=== PATIENT | female | born 1995 | race Caucasian/White ===

== ENCOUNTER 2016-11-03 17:07 | Emergency (ER) | payer BC ==
[~2016-11-03] VITALS: Ht 165.1 cm; Wt 84.5 kg
[2016-11-03 17:14] VITALS: TEMP 36.9; Ht 165.1 cm; Wt 84.5 kg
[2016-11-03] MEDS ORDERED: ONDANSETRON INJ 2 MG/ML 2 ML VIAL IV STA (17:25)
[2016-11-03] MEDS ORDERED: KETOROLAC TROMETHAMINE 30 MG/ML VIAL IV STA (17:25)
[2016-11-03] MEDS ORDERED: SODIUM CHLORIDE 0.9% 1000ML 1,000 ML IV STA (17:25)
[2016-11-03] MEDS ORDERED: NORE1CHW2 PO (17:42)
[2016-11-03 17:50] LABS: BASO % 0.2 %; BASO ABS # 0.03 K/uL (0-0.2); COMPLETE YES; HEMATOCRIT 37.4 % (37-47); IG% 0.3 %; LYMPH % 9.9 %; LYMPH ABS # 1.59 K/uL (1.2-3.4); MEAN CELL VOLUME 83.9 fL (80-100); MEAN CORPUSCULAR HEMOGLOBIN 31.2 pg (25-34); MEAN CORPUSCULAR HGB CONC 37.2 g/dl (32-36); MEAN PLATELET VOLUME 10.3 fL (7.4-10.4); MONO % 4.6 %; PLATELET COUNT 232 K/uL (130-400); RED BLOOD COUNT 4.46 M/uL (4.2-5.4); WHITE BLOOD COUNT 16.06 K/uL (4.8-10.8)
[2016-11-03 18:07] LABS: ALT/SGPT 17 U/L (12-78); BLOOD UREA NITROGEN 10 mg/dl (7-18); BUN/CREATININE RATIO 12.3 (10-20); CARBON DIOXIDE 20 mmol/L (21-32); CHLORIDE 105 mmol/L (98-107); CREATININE 0.81 mg/dl (0.60-1.20); GLUCOSE 87 mg/dl (70-99); POTASSIUM 3.5 mmol/L (3.5-5.1); SODIUM 139 mmol/L (136-145)
[2016-11-03 18:10] LABS: ALKALINE PHOSPHATASE 60 U/L (45-117); AST/SGOT 18 U/L (15-37)
[2016-11-03] MEDS ORDERED: OPTIRAY 320 IV PRN (18:15)
[2016-11-03 18:24] LABS: URINE APPEARANCE CLEAR (CLEAR); URINE BILIRUBIN NEG (NEG); URINE COLOR YELLOW; URINE EPITHELIAL CELL AUTO 20-30 /lpf (0-5); URINE NITRITE NEG (NEG); URINE SPECIFIC GRAVITY 1.019 (1.000-1.030); UROBILINOGEN NEG (NEG); ZZUR CULT IF INDIC CLEAN CATCH YES
[2016-11-03 18:36] LABS: MANUAL MICROSCOPIC REQUIRED? NO; REVIEW REQ? YES
--- NOTE | 2016-11-03 21:02 | DIAGNOSTIC IMAGING REPORT ---
CT SCAN OF THE ABDOMEN AND PELVIS WITH IV CONTRAST CLINICAL HISTORY: Lower abdominal pain. COMPARISON STUDY: No priors. TECHNIQUE: Following the IV administration of 93 cc of Optiray 320, CT scan of the abdomen and pelvis is performed from the lung bases to the proximal femora. Images are reviewed in the axial, sagittal, and coronal planes. IV contrast was administered without complication. Automated dose control exposure was utilized. CT DOSE: 852.11 mGycm FINDINGS: Lung bases: The heart is normal in size and without pericardial effusion. The lung bases are clear. Liver: The contrast-enhanced liver is enlarged, measuring 19 cm in length. The liver demonstrates diminished attenuation consistent with mild hepatic steatosis. There is no intrahepatic biliary ductal dilatation. The hepatic veins and portal veins are patent. Gallbladder: Unremarkable. Spleen: Normal in size and attenuation. Pancreas: Unremarkable. Adrenal glands: Unremarkable. Kidneys: The contrast enhanced kidneys are normal in size and without hydronephrosis. The kidneys enhance symmetrically. Abdominal vasculature: The abdominal aorta is normal in course and caliber. Bowel: The small bowel and colon are normal in course and caliber. There is moderate colonic fecal retention. The appendix is well-visualized and normal. Peritoneum: There is no intraperitoneal free air or abdominal ascites. Lymphadenopathy: None. Pelvic viscera: The bladder, uterus, and adnexa are normal as visualized. There are bilateral ovarian follicles. There is trace free fluid in the cul-de-sac. Skeletal structures: No lytic or blastic lesions are seen. A small posterior disc osteophyte complex is present at L5-S1. IMPRESSION: 1. There are no acute infectious or inflammatory findings in the abdomen or pelvis. 2. Hepatomegaly and hepatic steatosis. 3. Moderate constipation. 4. There is trace and likely physiologic free fluid in the cul-de-sac. Electronically signed by: Raj Burns M.D. 11/03/2016 9:00 PM Dictated Date/Time: 11/03/2016 8:56 PM
[2016-11-03 21:29] VITALS: BP 110/67; PULSE 70; O2SAT 99
--- NOTE | 2016-11-03 21:36 | EMERGENCY ROOM VISIT NOTE ---
History Report prepared by Forrest: Louis Blue Under the Supervision of: Dr. Сергей Ann D.O. First contact with patient: 17:17 Chief Complaint: ABDOMINAL PAIN Stated Complaint: ABDOMINAL PAIN:[facility] SENT PT TO ER Nursing Triage Summary: Pt c/o abdominal pain since this morning with nausea and no appetite History of Present Illness The patient is a 21 year old female who presents to the Emergency Room with complaints of worsening left sided abdominal pain beginning several hours prior to arrival. She currently rates her discomfort as an 8/10 in severity. The patient states she woke up this morning with an uncomfortable feeling in her lower abdomen. She notes she went about her day, and the pain worsened around 1 PM, when she was sitting in class. The patient states she left class early for a bowel movement but could not. She notes she walked to [facility] after class to be evaluated. The patient states her discomfort worsens with movement and walking. She denies anything making her discomfort better. The patient notes she has not had her period for 6-7 weeks but denies being . She states she is recently off of her control and skipped her last period. The patient denies a history of abdominal surgeries. She denies any medical problems. Pt denies headache, change in vision, fevers, chest pain, shortness of breath, vomiting, diarrhea, pain with urination, and melena. Source of History: patient Onset: several hours [employer] Position: abdomen (left sided) Symptom Intensity: 8/10 Timing: worsening Associated Symptoms: + abdominal pain Review of Systems See HPI for pertinent positives & negatives. A total of 10 systems reviewed and were otherwise negative. Past Medical & Surgical Medical Problems: (1) No pertinent past medical history Family History Patient reports no known family medical history. Social History Smoking Status: Never Smoker Marital Status: single Occupation Status: [employer] student Current/Historical Medications Scheduled Norethindrone & Ethinyl Estrad ([place] Fe), 1 TAB PO DAILY Allergies Coded Allergies: No Known Allergies (Unverified , 11/03/16) Physical Exam Vital Signs Date Time Temp Pulse Resp B/P Pulse Ox O2 Delivery O2 Flow Rate FiO2 11/03/16 21:29 70 16 110/67 99 Room Air 11/03/16 19:09 76 16 114/79 99 Room Air 11/03/16 17:14 36.9 82 20 130/84 100 Room Air Physical Exam GENERAL: sitting up in bed, uncomfortable appearing holding abdomen, non-toxic EYE EXAM: normal conjunctiva OROPHARYNX: no exudate, no erythema, lips, buccal mucosa, and tongue normal and mucous membranes are moist NECK: supple, no nuchal rigidity, no adenopathy, non-tender LUNGS: Clear to auscultation. Normal chest wall mechanics HEART: no murmurs, S1 normal and S2 normal ABDOMEN: Tender to palpation in the right lower and left lower quadrants. Abdomen soft, normo-active bowel sounds, no masses, no rebound or guarding. BACK: Back is symmetrical on inspection and there is no deformity, no midline tenderness, no CVA tenderness. SKIN: no rashes and no bruising UPPER EXTREMITIES: upper extremities are grossly normal. LOWER EXTREMITIES: No pitting edema. NEURO EXAM: Normal sensorium, cranial nerves II-XII grossly intact, normal speech, no gross weakness of arms, no gross weakness of legs. Medical Decision & Procedures ER Provider Diagnostic Interpretation: CT:Per my review, radiologist interpretation. CT SCAN OF THE ABDOMEN AND PELVIS WITH IV CONTRAST CLINICAL HISTORY: Lower abdominal pain. COMPARISON STUDY: No priors. TECHNIQUE: Following the IV administration of 93 cc of Optiray 320, CT scan of the abdomen and pelvis is performed from the lung bases to the proximal femora. Images are reviewed in the axial, sagittal, and coronal planes. IV contrast was administered without complication. Automated dose control exposure was utilized. CT DOSE: 852.11 mGycm FINDINGS: Lung bases: The heart is normal in size and without pericardial effusion. The lung bases are clear. Liver: The contrast-enhanced liver is enlarged, measuring 19 cm in length. The liver demonstrates diminished attenuation consistent with mild hepatic steatosis. There is no intrahepatic biliary ductal dilatation. The hepatic veins and portal veins are patent. Gallbladder: Unremarkable. Spleen: Normal in size and attenuation. Pancreas: Unremarkable. Adrenal glands: Unremarkable. Kidneys: The contrast enhanced kidneys are normal in size and without hydronephrosis. The kidneys enhance symmetrically. Abdominal vasculature: The abdominal aorta is normal in course and caliber. Bowel: The small bowel and colon are normal in course and caliber. There is moderate colonic fecal retention. The appendix is well-visualized and normal. Peritoneum: There is no intraperitoneal free air or abdominal ascites. Lymphadenopathy: None. Pelvic viscera: The bladder, uterus, and adnexa are normal as visualized. There are bilateral ovarian follicles. There is trace free fluid in the cul-de-sac. Skeletal structures: No lytic or blastic lesions are seen. A small posterior disc osteophyte complex is present at L5-S1. IMPRESSION: 1. There are no acute infectious or inflammatory findings in the abdomen or pelvis. 2. Hepatomegaly and hepatic steatosis. 3. Moderate constipation. 4. There is trace and likely physiologic free fluid in the cul-de-sac. Electronically signed by: Raj Burns M.D. 11/03/2016 9:00 PM Laboratory Results 11/03/16 17:35 Red Blood Count 4.46, Mean Corpuscular Volume 83.9, Mean Corpuscular Hemoglobin 31.2, Mean Corpuscular Hemoglobin Concent 37.2, Mean Platelet Volume 10.3, Neutrophils (%) (Auto) 84.0, Lymphocytes (%) (Auto) 9.9, Monocytes (%) (Auto) 4.6, Eosinophils (%) (Auto) 1.0, Basophils (%) (Auto) 0.2, Neutrophils # (Auto) 13.49, Lymphocytes # (Auto) 1.59, Monocytes # (Auto) 0.74, Eosinophils # (Auto) 0.16, Basophils # (Auto) 0.03 11/03/16 17:35 Test 11/03/16 17:25 11/03/16 17:35 Urine Test NEG (NEG) White Blood Count 16.06 K/uL (4.8-10.8) Red Blood Count 4.46 M/uL (4.2-5.4) Hemoglobin 13.9 g/dL (12.0-16.0) Hematocrit 37.4 % (37-47) Mean Corpuscular Volume 83.9 fL (80-100) Mean Corpuscular Hemoglobin 31.2 pg (25-34) Mean Corpuscular Hemoglobin Concent 37.2 g/dl (32-36) Platelet Count 232 K/uL (130-400) Mean Platelet Volume 10.3 fL (7.4-10.4) Neutrophils (%) (Auto) 84.0 % Lymphocytes (%) (Auto) 9.9 % Monocytes (%) (Auto) 4.6 % Eosinophils (%) (Auto) 1.0 % Basophils (%) (Auto) 0.2 % Neutrophils # (Auto) 13.49 K/uL (1.4-6.5) Lymphocytes # (Auto) 1.59 K/uL (1.2-3.4) Monocytes # (Auto) 0.74 K/uL (0.11-0.59) Eosinophils # (Auto) 0.16 K/uL (0-0.5) Basophils # (Auto) 0.03 K/uL (0-0.2) RDW Standard Deviation 38.7 fL (36.4-46.3) RDW Coefficient of Variation 12.8 % (11.5-14.5) Immature Granulocyte % (Auto) 0.3 % Immature Granulocyte # (Auto) 0.05 K/uL (0.00-0.02) Urine Color YELLOW Urine Appearance CLEAR (CLEAR) Urine pH 5.0 (4.5-7.5) Urine Specific [place] 1.019 (1.000-1.030) Urine Protein NEG (NEG) Urine Glucose (UA) NEG (NEG) Urine Ketones NEG (NEG) Urine Occult Blood NEG (NEG) Urine Nitrite NEG (NEG) Urine Bilirubin NEG (NEG) Urine Urobilinogen NEG (NEG) Urine Leukocyte Esterase MODERATE (NEG) Urine WBC (Auto) 10-30 /hpf (0-5) Urine RBC (Auto) 0-4 /hpf (0-4) Urine Hyaline Casts (Auto) 5-10 /lpf (0-5) Urine Epithelial Cells (Auto) 20-30 /lpf (0-5) Urine Bacteria (Auto) 1+ (NEG) Urine Yeast (Auto) PRESENT (NONE PRSENT) Anion Gap 14.0 mmol/L (3-11) Est Creatinine Clear Calc Drug Dose 118.9 ml/min Estimated GFR () 121.2 Estimated GFR (Non- 104.6 BUN/Creatinine Ratio 12.3 (10-20) Calcium Level 9.0 mg/dl (8.5-10.1) Total Bilirubin 0.3 mg/dl (0.2-1) Direct Bilirubin < 0.1 mg/dl (0-0.2) Aspartate Amino Transf (AST/SGOT) 18 U/L (15-37) Alanine Aminotransferase (ALT/SGPT) 17 U/L (12-78) Alkaline Phosphatase 60 U/L (45-117) Total Protein 8.0 gm/dl (6.4-8.2) Albumin 3.6 gm/dl (3.4-5.0) Lipase 141 U/L (73-393) Laboratory results per my review. Medications Administered Medications (Trade) Dose Ordered Sig/Radha Route Start Time Stop Time Status Last Admin Dose Admin Sodium Chloride (Nss 1000ml) 1,000 ml @ 999 mls/hr Q1H1M STAT IV 11/03/16 17:25 11/03/16 18:25 DC 11/03/16 17:36 999 MLS/HR Ketorolac Tromethamine (Toradol Inj) 30 mg NOW STAT IV 11/03/16 17:25 11/03/16 17:26 DC 11/03/16 17:36 30 MG Ondansetron HCl (Zofran Inj) 4 mg NOW STAT IV 11/03/16 17:25 11/03/16 17:26 DC 11/03/16 17:35 4 MG Fluconazole (Diflucan Tab) 150 mg NOW ONCE PO 11/03/16 21:45 11/03/16 21:46 DC 11/03/16 21:38 150 MG ED Course ED COURSE: Vital signs were reviewed and showed normal vitals. The patients medical record was reviewed The above diagnostic studies were performed and reviewed. ED treatments and interventions as stated above. 1718: The patient was evaluated in room A9B. A complete history and physical examination was performed. 5: Ordered Zofran Inj 4 mg IV, Toradol Inj 30 mg IV, Sodium Chloride 1,000 ml @ 999 mls/hr IV. 6: Reevaluated the patient at this time, and she is doing well. 2042: Reevaluated the patient at this time, and she just got back from [place] and is doing well. 2020: Reevaluated the patient at this time, and she would not like a pelvic exam. She states her pain has resolved. 2144: Ordered Diflucan Tab 150 mg PO. 2146: Upon reevaluation, the patient is doing well. I discussed my findings with the patient and she understands and agrees with the treatment plan. Based on the patients age, coexisting illnesses, exam and lab findings the decision to treat as an outpatient was made. The patient remained stable while under my care. The patient appeared well at the time of discharge. Medical Decision Differential diagnoses includes but is not limited to gastritis, peptic ulcer disease, GERD, gallbladder disease, pancreatitis, small bowel obstruction, acute coronary syndrome, pericarditis, ischemic bowel, irritable bowel disease, irritable bowel syndrome, appendicitis, diverticulitis, malignancy, hernia, urinary tract infection, torsion, /ectopic , perforation, trauma, infectious. Patient is a 21-year-old female who presented to the ER for diffuse abdominal pain which started earlier today. She notes that she became nauseous when she woke up and pain became worse around 1 PM. She was seen at [facility] and referred in for evaluation and she noted that her pain was worse with movement. On exam she has a fairly benign abdomen. She is given a bolus normal saline, Toradol and IV Zofran with complete resolution of her symptoms. On reevaluation she had No Pain. CT of Her Abdomen Pelvis Shows No Acute Pathology. Labs Were Remarkable for Leukocytosis of 16,000 Which I Favor Secondary to Pain. BMP along with LFTs, Bilirubin and Lipase Are Unremarkable. Urine Was Negative. UA Shows Multiple Epithelial Cells with White Cells and Leuks but She Has No Dysuria, Urgency or Frequency. She Did Have yeast in her UA which was treated with Diflucan as she refused a pelvic. I do not believe that she has a UTI and will not treat at this time. Discussed with Pt concerning signs and symptoms to watch out for. Pt was instructed to follow up with their PCP and discussed with the patient their option to return to the ED at anytime for persistent or worsening symptoms. The appropriate anticipatory guidance and out- patient management, including indications for return to the emergency department , were explained at length to the patient and understood. Impression Primary Impression: Abdominal pain, generalized Scribe Attestation The scribe's documentation has been prepared under my direction and personally reviewed by me in its entirety. I confirm that the note above accurately reflects all work, treatment, procedures, and medical decision making performed by me. Departure Information Dispostion Home / Self-Care Referrals No Doctor, Assigned (PCP) Forms HOME CARE DOCUMENTATION FORM, IMPORTANT VISIT INFORMATION Patient Instructions My [facility] Additional Instructions Please follow up with your primary care doctor or if you are a student [facility] with in the next 24 hours. Any worsening of your symptoms, please return to the ED immediately. This includes fevers greater than 100.4, persistent nausea vomiting, worsening abdominal pain, vaginal discharge, pain or burning with urination, or any other concerning signs or symptoms from your standpoint. Again please follow-up with [facility] tomorrow for abdominal recheck.
[2016-11-03] MEDS ORDERED: FLUCONAZOLE 50 MG TAB PO ONE (21:45)
== END 2016-11-03 21:41 | disposition home or self-care (01) ==
LOC: C.EDB 17:10 → C.EDA 21:41
DX: R10.84 Generalized abdominal pain (principal); K59.00 Constipation, unspecified; K76.0 Fatty (change of) liver, not elsewhere classified